=== PATIENT | female | born 1975 | race Caucasian/White ===

== ENCOUNTER 2019-10-06 11:12 | Emergency (ER) | payer BC ==
[~2019-10-06] VITALS: Ht 162.6 cm; Wt 72.6 kg
[2019-10-06] MEDS ORDERED: ROBAXIN 750 MG750 MG PO (12:00)
[2019-10-06] MEDS ORDERED: IBUPROFEN 800800 M1 PO (12:00)
[2019-10-06 12:12] VITALS: BP 146/89
== END 2019-10-06 12:15 | disposition home or self-care (01) ==
LOC: M.ERS 11:12
DX: S39.012A Strain of muscle, fascia and tendon of lower back, initial encounter (principal); X50.1XXA Overexertion from prolonged static or awkward postures, initial encounter; Y93.89 Activity, other specified; Y92.89 Other specified places as the place of occurrence of the external cause; Y99.8 Other external cause status

== ENCOUNTER 2019-10-11 08:48 | Emergency (ER) | payer BC ==
[~2019-10-11] VITALS: Ht 162.6 cm; Wt 70.3 kg
[~2019-10-11 08:48] MED LIST: IBUPROFEN 800800 M1 PO; ROBAXIN 750 MG750 MG PO
[2019-10-11] MEDS ORDERED: NORCO 5-325 TA1 EAC1 PO (09:33)
[2019-10-11] MEDS ORDERED: FLEXERIL PO (09:33)
[2019-10-11 09:53] VITALS: BP 122/68
== END 2019-10-11 09:54 | disposition home or self-care (01) ==
LOC: M.ERS 08:48
DX: M54.5 Low back pain (principal); Z98.51 Tubal ligation status